=== PATIENT | female | born 1990 | race Caucasian/White ===

== ENCOUNTER 2020-07-21 15:40 | Outpatient (CLI) | payer BC ==
[2020-07-21 16:40] VITALS: BP 123/82; RESP 18; TEMP 99.1
[2020-07-21 16:41] VITALS: PULSE 99
--- NOTE | 2020-08-29 08:00 | P.MSEPDOC ---
Presenting Problems - Arrival Data Date of Arrival on Unit: 07/21/20 Time of Arrival on Unit: 15:40 Mode of Transport: Ambulatory - Complaint OB-Reason for Admission/Chief Complaint: Decreased Movement Medical History - Information : 1 Para: 0 Term: 0 : 0 Abortions: Spontaneous or Elective: 0 Number of Living Children: 0 - Gestational Age Gestational Age by TJ (wks/days): 28 Weeks and 0 Days Review of Systems - Review of Systems Constitutional: No problems Breast: No problems ENT: No problems Cardiovascular: No problems Respiratory: No problems Gastrointestinal: No problems Genitourinary: No problems Musculoskeletal: No problems Neurological: No problems Skin: No problems Vital Signs - Temperature Temperature: 99.1 F Temperature Source: Tympanic - Pulse Right Pulse Rate: 99 Pulse Assessment Method: Automatic Cuff - Respirations Respiratory Rate: 18 Oxygen Delivery Method: Room Air O2 Sat by Pulse Oximetry: 98 - Blood Pressure Right Arm Blood Pressure: 123/82 Blood Pressure Mean: 95 Blood Pressure Source: Automatic Cuff Medical Screen Scoring (Pre) - Cervical Exam Dilation: Exam Deferred Effacement: Exam Deferred Membranes: Intact - Uterine Contractions Frequency: N/A Duration: N/A Intensity: N/A - Maternal Vital Signs Maternal Temperature: N/A Maternal Blood Pressure: N/A Signs of Preeclampsia: N/A Maternal Respirations: N/A - Maternal Trauma Maternal Trauma: N/A - Assessment - Baby A Baseline FHR: 150 Heart Rate - NICHD Category: Category I (Normal) = 0 NST: Reactive Position: N/A Station: N/A - Total Score - Baby A Total Score - Baby A: 0 - Total Score - Baby B Total Score - Baby B: 0 - Total Score - Baby C Total Score - Baby C: 0 - Level of Risk - Baby A Level of Risk - Baby A: Low (0-5) - Level of Risk - Baby B Level of Risk - Baby B: Low (0-5) - Level of Risk - Baby C Level of Risk - Baby C: Low (0-5) Physician Notification (Pre) - Physician Notified Physician Notified Date: 07/21/20 Physician Notified Time: 16:19 New Order Received: No - Notification Comment Comment: Pt cleared for discharge home with follow up instructions. Medical Screen Scoring (Post) - Cervical Exam Dilation: Exam Deferred Effacement: Exam Deferred Membranes: Intact - Uterine Contractions Frequency: N/A Duration: N/A Intensity: N/A - Maternal Vital Signs Maternal Temperature: N/A Maternal Blood Pressure: N/A Signs of Preeclampsia: N/A Maternal Respirations: N/A - Pain Assessment Pain Location and Character: Generalized Pain Scale Used: Numeric (1 - 10) Pain Intensity: 0 Pain Management Goal: 0 Pain Behavior: None Exhibited, Vocalization - Assessment - Baby A Heart Rate: 150 Heart Rate - NICHD Category: Category I (Normal) = 0 NST: Reactive Position: N/A Station: N/A - Total Score Total Score - Baby A: 0 Total Score - Baby B: 0 Total Score - Baby C: 0 - Post Treatment Level of Risk Post Treatment Level of Risk - Baby A: Low (0-5) Post Treatment Level of Risk - Baby B: Low (0-5) Post Treatment Level of Risk - Baby C: Low (0-5) Physician Notification (Post) - Physician Notified Physician Notified Date: 07/21/20 Physician Notified Time: 16:19 Physician/Practitioner Notified:: Sheldon Spoke With: Sheldon New Order Received: Yes (Discharge home with follow up instructions.) Disposition - Disposition OB Disposition: Physician follow up in office, Discharge to home Discharge Date: 07/21/20 Discharge Time: 16:23 I agree with the RN Medical Screening Exam: Yes Case reviewed; plan agreed upon as documented in EMR&OBIX.: Yes Comments: Patient was neither seen nor examined by me. Diagnosis: DECREASED MOVEMENTS, SECOND TRIMESTER, FETUS 1
== END 2020-07-21 16:23 | disposition home or self-care (01) ==
LOC: FBPOP 15:40
PROVIDERS: ATTEND Obstetrics & Gynecology
DX: O36.8120 Decreased fetal movements, second trimester, not applicable or unspecified (principal); Z3A.28 28 weeks gestation of pregnancy
CPT/HCPCS: 59025; 99213

== ENCOUNTER 2020-09-10 15:59 | Outpatient (CLI) | payer BC ==
[2020-09-10 16:29] LABS: Appearance,Urine Cloudy (Clear); Bacteria,Urine Moderate /hpf; Bilirubin,Urine Negative (Negative); Blood,Urine Negative (Negative); Color,Urine Light Yellow; Glucose,Urine (UA) Negative (Negative); Hyaline Casts,Urine 1 /lpf (0-2); Ketones,Urine Negative (Negative); Leukocyte Esterase,Urine Moderate (Negative); Mucus,Urine Rare /hpf; Nitrite,Urine Negative (Negative); Protein,Urine Negative (Negative); RBC,Urine 3 /hpf (0-5); Specific Gravity,Urine 1.008 (1.001-1.035); Squamous Epithelial Cell,Urine 2 /hpf (0-4); Urobilinogen,Urine <2.0 mg/dL (<2.0); WBC,Urine 11 /hpf (0-5)
[2020-09-10 16:36] LABS: Creatinine,Urine Random 35.3 mg/dL; Protein/Creatinine Ratio,Urine 0.397
[2020-09-10 16:56] LABS: Basophils # (A) 0.1 k/uL (0-0.2); Basophils % (A) 0 %; Eosinophils # (A) 0.1 k/uL (0-0.7); Eosinophils % (A) 1 %; HCT 41.8 % (34.0-46.0); HGB 14.2 gm/dL (11.4-16.0); Lymphocytes # (A) 2.1 k/uL (1.0-4.8); Lymphocytes % (A) 17 %; MCH 31.7 pg (25.0-35.0); MCHC 33.9 g/dL (31.0-37.0); MCV 93.4 fL (80.0-100.0); Mean Platelet Volume 10.4; Monocytes # (A) 0.7 k/uL (0-1.0); Monocytes % (A) 5 %; Neutrophils # (A) 9.1 k/uL (1.3-7.7); Neutrophils % (A) 75 %; Platelet Count 216 k/uL (150-450); RBC 4.48 m/uL (3.80-5.40); RDW 13.1 % (11.5-15.5); WBC 12.2 k/uL (3.8-10.6)
[2020-09-10 17:04] LABS: ALT 14 U/L (4-34); AST 20 U/L (14-36); African American GFR (CKD) >90 (>60 ml/min/1.73 sqM); Blood Urea Nitrogen 10 mg/dL (7-17); LDH 367 U/L (313-618); Non-African American GFR(CKD) >90 (>60 ml/min/1.73 sqM); Uric Acid 3.7 mg/dL (3.7-7.4)
[2020-09-10] MEDS ORDERED: BETAMET ACET-BETAMETH SOD PHOS 6 MG/ML MDV IM SCH (17:15)
[2020-09-10 17:35] VITALS: BP 136/87; PULSE 104; RESP 16; TEMP 97
--- NOTE | 2020-10-30 16:41 | P.MSEPDOC ---
Presenting Problems - Arrival Data Date of Arrival on Unit: 09/10/20 Time of Arrival on Unit: 15:59 Mode of Transport: Ambulatory - Complaint OB-Reason for Admission/Chief Complaint: PIH Comment: Telephone orders rec'd for PIH work up, pt coming from [facility]. Medical History - Information : 1 Para: 0 - Gestational Age Gestational Age by TJ (wks/days): 35 Weeks and 4 Days Review of Systems - Review of Systems Constitutional: No problems Breast: No problems ENT: No problems Cardiovascular: No problems Respiratory: No problems Gastrointestinal: No problems Genitourinary: No problems Musculoskeletal: No problems Neurological: No problems Skin: No problems Vital Signs - Temperature Temperature: 97.0 F Temperature Source: Temporal Artery Scan - Pulse Right Sitting Brachial Pulse Rate: 104 Pulse Assessment Method: Automatic Cuff - Respirations Respiratory Rate: 16 Oxygen Delivery Method: Room Air O2 Sat by Pulse Oximetry: 97 - Blood Pressure Right Arm Sitting Blood Pressure: 136/87 Blood Pressure Mean: 103 Blood Pressure Source: Automatic Cuff Medical Screen Scoring (Pre) - Cervical Exam Dilation: Exam Deferred Effacement: Exam Deferred Membranes: Intact - Uterine Contractions Frequency: N/A - Maternal Vital Signs Maternal Temperature: N/A Maternal Blood Pressure: N/A Signs of Preeclampsia: N/A Maternal Respirations: N/A - Maternal Trauma Maternal Trauma: N/A - Assessment - Baby A Baseline FHR: 150 Heart Rate - NICHD Category: Category I (Normal) = 0 NST: Reactive Position: N/A - Total Score - Baby A Total Score - Baby A: 0 - Total Score - Baby B Total Score - Baby B: 0 - Total Score - Baby C Total Score - Baby C: 0 - Level of Risk - Baby A Level of Risk - Baby A: Low (0-5) - Level of Risk - Baby B Level of Risk - Baby B: Low (0-5) - Level of Risk - Baby C Level of Risk - Baby C: Low (0-5) Physician Notification (Pre) - Physician Notified Physician Notified Date: 09/10/20 Physician Notified Time: 17:00 - Notification Comment Comment: Spk c\Dr. Trejo, reviewed serial BPs, reactive NST, labs reviewed all WNL c\the exception of urube P/C ratio (0.397). Orders rec'd for pt to receive Celestone now and second dose in 24hrs, to return tomorrow and repeat P/C ratio, NST and BPs. Disposition - Disposition OB Disposition: Discharge to home, Written follow up instructions reviewed Discharge Date: 09/10/20 Discharge Time: 17:20 I agree with the RN Medical Screening Exam: Yes Case reviewed; plan agreed upon as documented in EMR&OBIX.: Yes Diagnosis: gestational hypertension
== END 2020-09-10 17:20 | disposition home or self-care (01) ==
LOC: FBPOP 15:59
PROVIDERS: ATTEND Obstetrics & Gynecology
DX: O13.9 Gestational [pregnancy-induced] hypertension without significant proteinuria, unspecified trimester (principal); Z3A.35 35 weeks gestation of pregnancy
CPT/HCPCS: 59025; 96372; 82570; 84156; 82565; 83615; 84450; 84460; 84520; 84550; 85025; 81001; J0702

== ENCOUNTER 2020-09-11 16:58 | Outpatient (CLI) | payer BC ==
[2020-09-11] MEDS ORDERED: BETAMET ACET-BETAMETH SOD PHOS 6 MG/ML MDV IM SCH (17:20)
[2020-09-11 17:30] LABS: Creatinine,Urine Random 94.1 mg/dL; Protein/Creatinine Ratio,Urine 0.149
[2020-09-11 17:53] VITALS: BP 141/87; PULSE 118; RESP 18; TEMP 97.1
--- NOTE | 2020-09-23 08:05 | P.MSEPDOC ---
Presenting Problems - Arrival Data Date of Arrival on Unit: 09/11/20 Time of Arrival on Unit: 16:58 Mode of Transport: Ambulatory - Complaint OB-Reason for Admission/Chief Complaint: NST, Celestone Injection, Elevated Blood Pressure Comment: pt sent with order form from Dr. Trejo for 2nd celestone injection, serial bp's and nst Medical History - Gestational Age Gestational Age by TJ (wks/days): 35 Weeks and 5 Days Review of Systems - Review of Systems Constitutional: No problems Breast: No problems ENT: No problems Cardiovascular: No problems Respiratory: No problems Gastrointestinal: No problems Genitourinary: No problems Musculoskeletal: No problems Neurological: No problems Skin: No problems Vital Signs - Temperature Temperature: 97.1 F Temperature Source: Temporal Artery Scan - Pulse Right Brachial Pulse Rate: 118 Pulse Assessment Method: Automatic Cuff - Respirations Respiratory Rate: 18 Oxygen Delivery Method: Room Air - Blood Pressure Right Arm Blood Pressure: 141/87 Blood Pressure Mean: 105 Blood Pressure Source: Automatic Cuff Medical Screen Scoring (Pre) - Cervical Exam Dilation: Exam Deferred Effacement: Exam Deferred Membranes: Intact - Uterine Contractions Frequency: N/A Duration: N/A Intensity: N/A - Maternal Vital Signs Maternal Temperature: N/A Maternal Blood Pressure: Systolic >139 = 2 Signs of Preeclampsia: Headache = 1 Maternal Respirations: N/A - Maternal Trauma Maternal Trauma: N/A - Assessment - Baby A Baseline FHR: 120 Heart Rate - NICHD Category: Category I (Normal) = 0 NST: Reactive Position: N/A Station: N/A - Total Score - Baby A Total Score - Baby A: 3 - Total Score - Baby B Total Score - Baby B: 3 - Total Score - Baby C Total Score - Baby C: 3 - Level of Risk - Baby A Level of Risk - Baby A: Low (0-5) - Level of Risk - Baby B Level of Risk - Baby B: Low (0-5) - Level of Risk - Baby C Level of Risk - Baby C: Low (0-5) Physician Notification (Pre) - Physician Notified Physician Notified Date: 09/11/20 Physician Notified Time: 17:39 New Order Received: Yes - Notification Comment Comment: protien/creatine ratio results given, discharge pt home, call the office to make appt for Wednesday or Wednesday to follow up with Dr. Bernstein regarding bp, Disposition - Disposition OB Disposition: Triage Discharge Date: 09/11/20 Discharge Time: 17:50 I agree with the RN Medical Screening Exam: Yes Case reviewed; plan agreed upon as documented in EMR&OBIX.: Yes Diagnosis: gestational hypertension
== END 2020-09-11 17:50 | disposition home or self-care (01) ==
LOC: FBPOP 16:58
PROVIDERS: ATTEND Obstetrics & Gynecology
DX: O13.3 Gestational [pregnancy-induced] hypertension without significant proteinuria, third trimester (principal); Z3A.35 35 weeks gestation of pregnancy
CPT/HCPCS: 59025; 82570; 84156; J0702

== ENCOUNTER 2020-09-12 10:46 | Outpatient (CLI) | payer BC ==
[2020-09-12 11:29] VITALS: BP 136/83; PULSE 103; RESP 16; TEMP 97
--- NOTE | 2020-09-23 08:06 | P.MSEPDOC ---
Presenting Problems - Arrival Data Date of Arrival on Unit: 09/12/20 Time of Arrival on Unit: 10:46 Mode of Transport: Ambulatory - Complaint OB-Reason for Admission/Chief Complaint: Headache Comment: Pt states headache 5/10, "all over" head and tinnitus x 2 days, also c/o light sensitivity. Has been taking BP at home and had a reading of 130s/100 this morning. Medical History - Information : 1 Para: 0 - Gestational Age Gestational Age by TJ (wks/days): 35 Weeks and 6 Days Review of Systems - Review of Systems Constitutional: No problems Breast: No problems ENT: No problems Cardiovascular: No problems Respiratory: No problems Gastrointestinal: No problems Genitourinary: No problems Musculoskeletal: No problems Neurological: No problems Skin: No problems Vital Signs - Temperature Temperature: 97 F Temperature Source: Temporal Artery Scan - Pulse Right Sitting Pulse Rate: 103 Pulse Assessment Method: Pulse Oximetry - Respirations Respiratory Rate: 16 Oxygen Delivery Method: Standby O2 Sat by Pulse Oximetry: 98 - Blood Pressure Right Arm Sitting Blood Pressure: 136/83 Blood Pressure Mean: 100 Blood Pressure Source: Automatic Cuff Medical Screen Scoring (Pre) - Cervical Exam Dilation: Exam Deferred - Uterine Contractions Frequency: N/A Duration: N/A Intensity: N/A - Maternal Vital Signs Maternal Temperature: N/A Maternal Blood Pressure: N/A Signs of Preeclampsia: N/A Maternal Respirations: N/A - Maternal Trauma Maternal Trauma: N/A - Assessment - Baby A Baseline FHR: 130 Heart Rate - NICHD Category: Category I (Normal) = 0 NST: Reactive Position: N/A Station: N/A - Total Score - Baby A Total Score - Baby A: 0 - Total Score - Baby B Total Score - Baby B: 0 - Total Score - Baby C Total Score - Baby C: 0 - Level of Risk - Baby A Level of Risk - Baby A: Low (0-5) - Level of Risk - Baby B Level of Risk - Baby B: Low (0-5) - Level of Risk - Baby C Level of Risk - Baby C: Low (0-5) Physician Notification (Pre) - Physician Notified Physician Notified Date: 09/12/20 Physician Notified Time: 11:16 New Order Received: Yes - Notification Comment Comment: Jennifer delacruz\\Dr. Trejo, advsd 35 12/23, to triage c\\concerns of JOHNSON x 2 days, light sensitivity and tinnitus, pt had PIH workup 2 days ago, and repeat Urine P/C ratio (WNL) yesterday, also rec'd celestone x 2. Pt checking BP at home and concerned with intermittent high reading. BPs reviewed, FHT reactive. Pt to be reassured and discharged home to follow up as scheduled, review triage d/c. Disposition - Disposition OB Disposition: Discharge to home, Written follow up instructions reviewed Discharge Date: 09/12/20 Discharge Time: 11:25 I agree with the RN Medical Screening Exam: Yes Case reviewed; plan agreed upon as documented in EMR&OBIX.: Yes Diagnosis: gestational hypertension
== END 2020-09-12 11:25 | disposition home or self-care (01) ==
LOC: FBPOP 10:46
PROVIDERS: ATTEND Obstetrics & Gynecology
DX: O13.3 Gestational [pregnancy-induced] hypertension without significant proteinuria, third trimester (principal); Z3A.35 35 weeks gestation of pregnancy
CPT/HCPCS: 59025; 99215

== ENCOUNTER 2020-10-08 06:00 | Inpatient (IN) | payer BC ==
[2020-10-08] MEDS ORDERED: LIDOCAINE 0.5% (PF) 5 MG/ML (50 ML SDV) SQ PRN (06:11)
[2020-10-08] MEDS ORDERED: METHYLERGONOVINE 0.2 MG/ML 1 ML AMP IM PRN (06:11)
[2020-10-08] MEDS ORDERED: TERBUTALINE 1 MG/ML VIAL SQ PRN (06:11)
[2020-10-08] MEDS ORDERED: OXYTOCIN 10 UNIT/ML 1 ML VIAL IM PRN (06:11)
[2020-10-08] MEDS ORDERED: CARBOPROST TROMETHAMINE 250 MCG/ML 1 ML AMP IM PRN (06:11)
[2020-10-08] MEDS: LACTATED RINGERS 1,000 ML IV SCH ×2 (06:31→11:05)
[2020-10-08] MEDS: OXYTOCIN 30 UNITS/500 ML NS 30 UNIT in SALINE 1 500ML.BAG IV SCH ×2 (06:32→17:27)
[2020-10-08 06:35] LABS: Basophils # (A) 0.1 k/uL (0-0.2); Basophils % (A) 1 %; Eosinophils # (A) 0.2 k/uL (0-0.7); Eosinophils % (A) 2 %; HCT 40.2 % (34.0-46.0); HGB 14.1 gm/dL (11.4-16.0); Lymphocytes # (A) 2.3 k/uL (1.0-4.8); Lymphocytes % (A) 21 %; MCH 32.7 pg (25.0-35.0); MCV 93.5 fL (80.0-100.0); Monocytes # (A) 0.7 k/uL (0-1.0); Monocytes % (A) 6 %; Neutrophils # (A) 7.5 k/uL (1.3-7.7); Neutrophils % (A) 69 %; Platelet Count 209 k/uL (150-450); WBC 10.9 k/uL (3.8-10.6)
[2020-10-08] MEDS: BUTORPHANOL 1 MG/ML 1 ML VIAL IV PRN ×2 (08:56→19:10)
--- NOTE | 2020-10-08 09:16 | P.HPOB ---
History of Present Illness H&P Date: 10/08/20 Chief Complaint: Gestational hypertension This is a 30-year-old 1 para 0 woman who is admitted at 39-4/7 weeks gestation for induction of labor secondary to history of gestational hypertension. She has an estimated due date of 10/11/2020 based on LMP consistent with early ultrasound. She began having elevated blood pressures at 35 weeks gestation. Preeclamptic workup was consistently negative. She was started on labetalol for blood pressure control which she now takes 100 mg twice a day. testing has all been reassuring. She has had some increasing lower extremity swelling for which she wears compression stockings. Today she denies headaches, visual changes, increased swelling, abdominal pain. She's had good movement. Laboratory data: Blood type O positive, antibody screen negative, rubella immune, VDRL nonreactive, hep Margarita surface antigen negative, HIV negative, gonorrhea and clinic cultures negative, 1 hour glucose tolerance test abnormal, 3 hour within normal limits, group B strep negative Review of Systems All systems: negative Past Medical History Past Medical History: Asthma History of Any Multi-Drug Resistant Organisms: None Reported Date of last positivie culture/infection: 2007 MDRO Source:: unknown Past Surgical History: Tonsillectomy Additional Past Surgical History / Comment(s): Right elbow repair Past Anesthesia/Blood Transfusion Reactions: No Reported Reaction Past Psychological History: Anxiety, Depression Smoking Status: Never smoker Past Alcohol Use History: None Reported Past Drug Use History: None Reported - Past Family History Father Family Medical History: Cancer, Hypertension Additional Family Medical History / Comment(s): Stroke, [place], Blood Cancer Mother Family Medical History: Hypertension Additional Family Medical History / Comment(s): Anxiety, Depression Medications and Allergies Home Medications Medication Instructions Recorded Confirmed Type Pnv No.95/Ferrous Fum/Folic AC 1 tab PO DAILY 05/31/20 10/08/20 History [ Multivitamin Tablet] Labetalol [Trandate] 100 mg PO BID 10/08/20 10/08/20 History Allergies Allergy/AdvReac Type Severity Reaction Status Date / Time adhesive tape AdvReac Rash/Hives Verified 10/08/20 06:10 Exam Vital Signs Temp Pulse Resp BP Pulse Ox 10/08/20 06:16 97.2 F L 94 16 149/76 99 Intake and Output 10/07/20 10/08/2021 22:59 06:59 14:59 Other: Weight 86.636 kg This is a pleasant, visibly gravid female. Targeted physical exam is performed. She has bilateral compression stockings on but appears to have 2+ lower extremity edema. On pelvic examination the cervix is 1-1/2 cm dilated, 80% effaced and the vertex in the -2 station. Artificial rupture membranes is undertaken and clear fluid is noted. heart tones are category 1 and she is irregularly tamara. Results Result Diagrams: 10/08/20 06:25 Abnormal Lab Results - Last 24 Hours (Table) 10/08/20 Range/Units 06:25 WBC 10.9 H (3.8-10.6) k/uL Assessment and Plan (1) 39 weeks gestation of Current Visit: Yes Status: Acute Code(s): Z3A.39 - 39 WEEKS GESTATION OF SNOMED Code(s): 27466566 (2) Gestational hypertension Current Visit: Yes Status: Acute Code(s): O13.9 - GESTATIONAL HTN W/O SIGNIFICANT PROTEINURIA, UNSP TRIMESTER SNOMED Code(s): 051208464 Plan: 30-year-old 1 para 0 at 39-4/7 weeks gestation admitted for induction of labor secondary to gestational hypertension. status is currently reassuring her blood pressures were mainly in the 130s over 80s. She is group B strep negative and Rh+. Anticipate normal spontaneous vaginal delivery.
[2020-10-08] MEDS ORDERED: ROPIVACAINE 100 MG, fentaNYL (PF) 200 MCG in SODIUM CHLORIDE 0.9% 76 ML EPIDURAL ONE (12:33)
[2020-10-08] MEDS ORDERED: LANOLIN CREAM 5 GM TUBE TOPICAL PRN (14:47)
[2020-10-08] MEDS ORDERED: HYDROCORTISONE 2.5% RECTAL CREAM 30 GM TUBE RECTAL PRN (14:47)
[2020-10-08] MEDS ORDERED: diphenhydrAMINE 50 MG CAP PO PRN (14:47)
[2020-10-08] MEDS ORDERED: SIMETHICONE 80 MG CHEWABLE PO PRN (14:47)
[2020-10-08] MEDS ORDERED: diphenhydrAMINE 50 MG/ML 1 ML VIAL IVP PRN ×2 (14:47)
[2020-10-08] MEDS ORDERED: BENZOCAINE/MENTHOL SPRAY 1 GM/SPRAY AEROSOL TOPICAL PRN (14:47)
[2020-10-08] MEDS ORDERED: ZOLPIDEM 5 MG TAB PO PRN (14:47)
[2020-10-08] MEDS ORDERED: diphenhydrAMINE 25 MG CAP PO PRN (14:47)
[2020-10-08] MEDS ORDERED: OXYTOCIN 30 UNITS/500 ML NS 30 UNIT in SALINE 1 500ML.BAG IV SCH (15:00)
--- NOTE | 2020-10-08 15:04 | P.PROBDLV ---
Vaginal Delivery Note - . Vaginal Delivery Note: Findings: Female in the vertex left occiput anterior position with Apgars of 8 at 1 minute and 9 at 5 minutes weighing 7 lbs. 15 oz., 3560 g. Intact three-vessel cord placenta. Right vaginal sulcus tear. EBL 500 mL's from laceration. Delivery summary: This is a 30-year-old 1 para 0 woman who is admitted at 39-4/7 weeks gestation for induction of labor secondary to gestational hypertension. Please see the admission history and physical for details. Following admission she underwent a Pitocin induction of labor with artificial rupture of membranes. She was 1-1/2 cm dilated at rupture of membranes at approximately 7:30 AM. Clear fluid was noted. She progressed to 5 cm dilated by approximately 12 PM. She received an epidural anesthetic. She reached complete cervical dilation by approximately 1400 and commenced pushing with good maternal effort. She had an extremely dense epidural. With she was repositioned, prepped and draped in the dorsal modified Dotty position. With maternal effort the head delivered from the left occiput anterior position. Of note immediately prior to delivery of the head there was an audible pop and sudden descent of the vertex. The head then delivered from the left occiput anterior position followed rapidly by the anterior and posterior shoulders. The rest the was delivered onto the field and the nose and mouth were bulb suctioned. The infant was placed on the maternal abdomen where eventually the cord was clamped and cut. Apgars were 8 at 1 minute and 9 at 5 minutes and weight was 7 lbs. 15 oz. An intact, three-vessel cord placenta was delivered after a 3 minute third stage of labor. The perineum was then inspected. The perineum itself was intact however there is a deep midline and right vaginal and cervical tear. This was actively and copiously bleeding. Assistance was called for for visualization. Fingers was placed in the rectum and the rectal mucosa was noted to be intact. With finger in the rectum for guidance several deep sutures were placed to reapproximate the floor of the vagina and the sidewall. This eventually controlled the bleeding and better visualization was possible. Gloves were changed. The laceration was then further repaired. 3-0 Vicryl suture was utilized throughout. There was a shearing laceration of the right labia that was also repaired using 3-0 Vicryl suture. Following completion of the repair the vagina was thoroughly inspected and no active bleeding was noted. Rectal exam was repeated and no evidence of hematoma or disruption of the rectal mucosa were musculature was appreciated. EBL for the entire delivery was a proximally 500 mL's. The uterus was massaged and the patient did receive Pitocin immediately following delivery of the placenta. The uterus was firm throughout and below the level of the umbilicus. Events of delivery and the laceration reviewed with the patient and the father of the baby in detail. Nursing staff instructed to monitor for hematoma development and at this time she is recovering well. CBC in the a.m.
[2020-10-08] MEDS: IBUPROFEN 600 MG TAB PO SCH ×2 (15:16→21:23)
--- NOTE | 2020-10-08 19:43 | P.PN ---
Progress Note - Text Progress Note Date: 10/08/20 Called to see patient who is status post normal spontaneous vaginal delivery earlier this afternoon. Patient had noted increase in bright red bleeding, per RN. Her hemoglobin on admission was 14, vital signs were noted to be stable throughout recovery. Patient was given 1 mg of Stadol, and complete evaluation of the vaginal vault was performed. An anterior Peña retractor was placed into the vaginal vault, no bleeding superior to the vaginal repair was appreciated. The vaginal laceration was well approximated and hemostatic. Uterus is noted be firm and below the umbilicus, lochia was noted to be minimal in nature. On inspection the patient's right labia noted a small clot and appreciation of prior repair. 4-0 chromic was used to close the labial laceration in a running locked fashion after installation of lidocaine. No further bleeding was appreciated. Patient did tolerate closure well all counts were noted be correct 2 at the end of the repair.
[2020-10-08] MEDS: SENNOSIDES-DOCUSATE SODIUM 1 EACH TAB PO SCH (20:08)
[2020-10-08 20:43] LABS: Basophils % (A) 0 %; Eosinophils # (A) 0.1 k/uL (0-0.7); Eosinophils % (A) 1 %; HCT 36.2 % (34.0-46.0); Lymphocytes # (A) 1.7 k/uL (1.0-4.8); Lymphocytes % (A) 11 %; MCH 31.1 pg (25.0-35.0); MCHC 33.2 g/dL (31.0-37.0); MCV 93.6 fL (80.0-100.0); Mean Platelet Volume 10.9; Monocytes # (A) 0.8 k/uL (0-1.0); Monocytes % (A) 5 %; Neutrophils # (A) 12.2 k/uL (1.3-7.7); Neutrophils % (A) 82 %; Platelet Count 218 k/uL (150-450); RBC 3.86 m/uL (3.80-5.40); RDW 13.4 % (11.5-15.5)
[2020-10-09] MEDS: ACETAMINOPHEN TAB 325 MG TAB PO PRN ×2 (01:09→07:28)
[2020-10-09] MEDS: IBUPROFEN 600 MG TAB PO SCH ×3 (04:41→15:15)
[2020-10-09] MEDS: SENNOSIDES-DOCUSATE SODIUM 1 EACH TAB PO SCH (07:29)
--- NOTE | 2020-10-09 08:17 | P.DS ---
Providers Date of admission: 10/08/20 06:00 Expected date of discharge: 10/09/20 Attending physician: Taylor Trejo Primary care physician: Stated None - Discharge Diagnosis(es) (1) 39 weeks gestation of Current Visit: Yes Status: Acute (2) Gestational hypertension Current Visit: Yes Status: Acute (3) Vaginal laceration Current Visit: Yes Status: Acute (4) Normal spontaneous vaginal delivery Current Visit: Yes Status: Acute Hospital Course: This is a 30-year-old 1 now para 1 woman who was admitted at 39-4/7 weeks' gestation for induction of labor secondary to gestational hypertension. Please see the admission history and physical for details. Following admission she underwent a Pitocin induction of labor with artificial rupture of membranes. She had a rather rapid progression throughout the first stage of labor and did receive an epidural anesthetic. Her blood pressures were stable throughout her labor. She did reach complete cervical dilation and commenced pushing with excellent maternal effort. She did have a very dense epidural. She went on to deliver a liveborn female over an unusual vaginal laceration. Apgars were 8 at 1 minute and 9 at 5 minutes and weight was 7 lbs. 14 oz. She had a deep but proximal vaginal laceration with active arterial bleeding. This was repaired however EBL is approximate 500 mL's. This laceration extended into the right labia which was also repaired. Unfortunately later in the day some increase in bleeding was noted. Bag Repairer on-call was called to assess and it appeared as though the labial portion of the laceration had opened. This was anesthetized and repaired with good hemostasis. Please see the progress note for details. The patient's day #1 hemoglobin was greater than 12. Her admission hemoglobin was 14. Her blood pressures have remained stable throughout her hospitalization with 1 elevated blood pressure of 150s over 80s. This morning on day #1 she is ambulating and urinating without difficulty. She has some soreness in the perineal area that is being controlled with ice and ibuprofen. She is not yet had a bowel movement. Her lochia was minimal and she is breast-feeding successfully. Plan is for discharge home later in the day with instructions for care and follow-up. Patient Condition at Discharge: Good Plan - Discharge Summary New Discharge Prescriptions: New Ibuprofen [Motrin] 600 mg PO Q6H tab Sennosides-Docusate Sodium [Senokot-S] 2 each PO BID@00,1999 tab No Action Pnv No.95/Ferrous Fum/Folic AC [ Multivitamin Tablet] 1 tab PO DAILY Labetalol [Trandate] 100 mg PO BID Discharge Medication List Pnv No.95/Ferrous Fum/Folic AC [ Multivitamin Tablet] 1 tab PO DAILY 05/31/20 [History] Labetalol [Trandate] 100 mg PO BID 10/08/20 [History] Ibuprofen [Motrin] 600 mg PO Q6H tab 10/09/20 [Rx] Sennosides-Docusate Sodium [Senokot-S] 2 each PO BID@799,1999 tab 10/09/20 [Rx] Follow up Appointment(s)/Referral(s): Taylor Trejo MD [STAFF PHYSICIAN] - 4 Weeks Activity/Diet/Wound Care/Special Instructions: Follow-up in the office in 4 weeks . Monitor home blood pressures. Contact the office with blood pressures greater than 150s over 90s. Call with any concerning signs or symptoms including heavy vaginal bleeding, severe abdominal pain, fever greater than 101, swelling or redness of the lower extremities, foul vaginal discharge, or signs of depression. Recommend [id number] stool softeners twice a day. Nothing in the vagina for 6 weeks after delivery, specifically no intercourse. Discharge Disposition: HOME SELF-CARE
[2020-10-09 08:31] LABS: Basophils # (A) 0.1 k/uL (0-0.2); Basophils % (A) 1 %; Eosinophils # (A) 0.1 k/uL (0-0.7); Eosinophils % (A) 1 %; HCT 32.8 % (34.0-46.0); Lymphocytes # (A) 1.9 k/uL (1.0-4.8); Lymphocytes % (A) 16 %; MCH 31.7 pg (25.0-35.0); MCHC 33.4 g/dL (31.0-37.0); MCV 94.9 fL (80.0-100.0); Mean Platelet Volume 10.2; Monocytes # (A) 0.7 k/uL (0-1.0); Monocytes % (A) 6 %; Neutrophils # (A) 9.3 k/uL (1.3-7.7); Neutrophils % (A) 76 %; Platelet Count 165 k/uL (150-450); RBC 3.46 m/uL (3.80-5.40); RDW 13.6 % (11.5-15.5); WBC 12.3 k/uL (3.8-10.6)
[2020-10-09 08:56] VITALS: PULSE 75; RESP 18; TEMP 98.2
[2020-10-09 08:57] VITALS: BP 138/84
[2020-10-09] MEDS: LACTATED RINGERS 1,000 ML IV SCH (09:00)
== END 2020-10-09 15:38 | disposition home or self-care (01) | DRG 807 ==
LOC: 4FBP 06:00
PROVIDERS: ADMIT Obstetrics & Gynecology; ATTEND Obstetrics & Gynecology
PROC: 10E0XZZ Delivery of Products of Conception, External Approach (ICD-10-PCS; principal; 2020-10-08)
PROC: 0HQ9XZZ Repair Perineum Skin, External Approach (ICD-10-PCS; 2020-10-08)
DX: O13.4 Gestational [pregnancy-induced] hypertension without significant proteinuria, complicating childbirth (principal); Z37.0 Single live birth; O99.52 Diseases of the respiratory system complicating childbirth; J45.909 Unspecified asthma, uncomplicated; Z82.3 Family history of stroke; Z3A.39 39 weeks gestation of pregnancy; O70.0 First degree perineal laceration during delivery; Z81.8 Family history of other mental and behavioral disorders; Z82.49 Family history of ischemic heart disease and other diseases of the circulatory system
CPT/HCPCS: 85025; 86850; 86900; 86901

== ENCOUNTER 2022-12-06 10:26 | Outpatient (CLI) | payer BC ==
[2022-12-06 11:04] LABS: Appearance,Urine Clear (Clear); Bilirubin,Urine Negative (Negative); Blood,Urine Negative (Negative); Color,Urine Light Yellow; Glucose,Urine (UA) Negative (Negative); Ketones,Urine Negative (Negative); Leukocyte Esterase,Urine Negative (Negative); Nitrite,Urine Negative (Negative); Protein,Urine Negative (Negative); Specific Gravity,Urine 1.005 (1.001-1.035); Urobilinogen,Urine <2.0 mg/dL (<2.0)
[2022-12-06 11:15] LABS: Creatinine,Urine Random 41.9 mg/dL; Protein/Creatinine Ratio,Urine 0.215
[2022-12-06 12:22] LABS: Basophils % (A) 0 %; Eosinophils # (A) 0.3 k/uL (0-0.7); Eosinophils % (A) 2 %; HCT 37.9 % (34.0-46.0); HGB 12.8 gm/dL (11.4-16.0); Lymphocytes # (A) 1.5 k/uL (1.0-4.8); Lymphocytes % (A) 12 %; MCH 29.9 pg (25.0-35.0); MCHC 33.6 g/dL (31.0-37.0); MCV 88.9 fL (80.0-100.0); Mean Platelet Volume 9.6; Monocytes # (A) 0.6 k/uL (0-1.0); Monocytes % (A) 5 %; Neutrophils # (A) 9.8 k/uL (1.3-7.7); Neutrophils % (A) 80 %; Platelet Count 187 k/uL (150-450); RBC 4.26 m/uL (3.80-5.40); RDW 13.3 % (11.5-15.5); WBC 12.4 k/uL (3.8-10.6)
[2022-12-06 12:30] LABS: ALT 13 U/L (4-34); AST 20 U/L (14-36); African American GFR (CKD) >90 (>60 ml/min/1.73 sqM); Blood Urea Nitrogen 5 mg/dL (7-17); LDH 164 U/L (120-246); Magnesium 1.7 mg/dL (1.6-2.3); Non-African American GFR(CKD) >90 (>60 ml/min/1.73 sqM); Uric Acid 2.5 mg/dL (3.7-7.4)
[2022-12-06 13:05] VITALS: BP 139/86; PULSE 105; RESP 16; TEMP 97.7
--- NOTE | 2023-01-07 19:09 | P.MSEPDOC ---
Presenting Problems - Arrival Data Date of Arrival on Unit: 12/06/22 Time of Arrival on Unit: 10:26 Mode of Transport: Ambulatory - Complaint OB-Reason for Admission/Chief Complaint: PIH Medical History - Information : 2 Para: 1 Number of Living Children: 1 - Gestational Age Gestational Age by TJ (wks/days): 22 Weeks and 4 Days Review of Systems - Review of Systems Constitutional: No problems Breast: No problems ENT: No problems Cardiovascular: No problems Respiratory: No problems Gastrointestinal: No problems Genitourinary: No problems Musculoskeletal: No problems Neurological: No problems Skin: No problems Vital Signs - Temperature Temperature: 97.7 F Temperature Source: Temporal Artery Scan - Pulse Right Sitting Brachial Pulse Rate: 105 Pulse Assessment Method: Automatic Cuff - Respirations Respiratory Rate: 16 Oxygen Delivery Method: Room Air - Blood Pressure Right Arm Sitting Blood Pressure: 139/86 Blood Pressure Mean: 103 Blood Pressure Source: Automatic Cuff Physician Notification - Physician Notified Physician Notified Date: 12/06/22 Physician Notified Time: 12:45 Physician: Genesis Jean New Order Received: Yes Maternal Triage Index - Maternal Triage Index Presenting for scheduled procedure w/no complaint: No - Stat/Priority 1 Stat Priority 1: No - Urgent/Priority 2 Urgent Priority 2: No - Prompt/Priority 3 Prompt Priority 3: Yes Criteria Met for Priority 3: pt reports elevated pressures, RN findings are not elevated Disposition - Disposition OB Disposition: Discharge to home Discharge Date: 12/06/22 Discharge Time: 12:50 I agree with the RN Medical Screening Exam: Yes Case reviewed; plan agreed upon as documented in EMR&OBIX.: Yes Diagnosis: RELATED CONDITIONS, UNSPECIFIED, SECOND TRIMESTER
== END 2022-12-06 12:50 | disposition home or self-care (01) ==
LOC: FBPOP 10:26
PROVIDERS: ATTEND Obstetrics & Gynecology Obstetrics
DX: O26.892 Other specified pregnancy related conditions, second trimester (principal); Z3A.22 22 weeks gestation of pregnancy
CPT/HCPCS: 81003; 82565; 82570; 83615; 83735; 84156; 84450; 84460; 84520; 84550; 85025; 99215

== ENCOUNTER 2023-01-08 17:15 | Outpatient (CLI) | payer BC ==
[2023-01-08 18:08] LABS: Appearance,Urine Clear (Clear); Bacteria,Urine Rare /hpf; Bilirubin,Urine Negative (Negative); Blood,Urine Negative (Negative); Color,Urine Yellow; Glucose,Urine (UA) Negative (Negative); Ketones,Urine Trace (Negative); Leukocyte Esterase,Urine Trace (Negative); Mucus,Urine Moderate /hpf; Nitrite,Urine Negative (Negative); PH, Urine 6.5 (5.0-8.0); Protein,Urine Trace (Negative); RBC,Urine <1 /hpf (0-5); Specific Gravity,Urine 1.023 (1.001-1.035); Squamous Epithelial Cell,Urine 8 /hpf (0-4); Urobilinogen,Urine <2.0 mg/dL (<2.0); WBC,Urine 2 /hpf (0-5)
[2023-01-08 18:48] LABS: Basophils % (A) 0 %; Eosinophils # (A) 0.2 k/uL (0-0.7); Eosinophils % (A) 2 %; HCT 35.9 % (34.0-46.0); HGB 12.1 gm/dL (11.4-16.0); Lymphocytes # (A) 2.6 k/uL (1.0-4.8); Lymphocytes % (A) 24 %; MCH 30.1 pg (25.0-35.0); MCHC 33.6 g/dL (31.0-37.0); MCV 89.5 fL (80.0-100.0); Mean Platelet Volume 9.2; Monocytes # (A) 0.7 k/uL (0-1.0); Monocytes % (A) 7 %; Neutrophils % (A) 66 %; Platelet Count 209 k/uL (150-450); RBC 4.01 m/uL (3.80-5.40); RDW 13.5 % (11.5-15.5); WBC 10.6 k/uL (3.8-10.6)
[2023-01-08 18:55] VITALS: BP 115/68; PULSE 91; RESP 16; TEMP 97.3
[2023-01-08 19:03] LABS: African American GFR (CKD) >90 (>60 ml/min/1.73 sqM); Anion Gap 8 mmol/L; Blood Urea Nitrogen 7 mg/dL (7-17); Calcium 9.1 mg/dL (8.4-10.2); Carbon Dioxide 18 mmol/L (22-30); Chloride 107 mmol/L (98-107); Glucose 77 mg/dL (74-99); Non-African American GFR(CKD) >90 (>60 ml/min/1.73 sqM); Potassium 3.9 mmol/L (3.5-5.1); Sodium 133 mmol/L (137-145)
--- NOTE | 2023-03-03 17:51 | P.MSEPDOC ---
Presenting Problems - Arrival Data Date of Arrival on Unit: 01/08/23 Time of Arrival on Unit: 17:15 Mode of Transport: Ambulatory - Complaint OB-Reason for Admission/Chief Complaint: Pain Comment: lower right quad and generalized back pain Medical History - Information : 3 Para: 1 Term: 1 : 0 Abortions: Spontaneous or Elective: 1 Number of Living Children: 1 - Gestational Age Gestational Age by TJ (wks/days): 27 Weeks and 2 Days Review of Systems - Review of Systems Constitutional: No problems Breast: No problems ENT: No problems Cardiovascular: No problems Respiratory: No problems Gastrointestinal: No problems Genitourinary: No problems Musculoskeletal: No problems Neurological: No problems Skin: No problems Vital Signs - Temperature Temperature: 97.3 F Temperature Source: Temporal Artery Scan - Pulse Right Pulse Rate: 91 Pulse Assessment Method: Automatic Cuff - Respirations Respiratory Rate: 16 Oxygen Delivery Method: Room Air O2 Sat by Pulse Oximetry: 99 - Blood Pressure Right Arm Sitting Blood Pressure: 115/68 Blood Pressure Mean: 83 Blood Pressure Source: Automatic Cuff Medical Screen Scoring - Uterine Contractions Frequency From (mins): 0 - Assessment - Baby A Baseline FHR: 135 Heart Rate - NICHD Category: Category I (Normal) Physician Notification - Physician Notified Physician Notified Date: 01/08/23 Physician Notified Time: 19:13 Physician: Genesis Jean New Order Received: Yes (all labs wnl, order d/c with insruction) Maternal Triage Index - Stat/Priority 1 Stat Priority 1: No - Urgent/Priority 2 Urgent Priority 2: Yes Provider Notified: Genesis Jean Provider Notified Time: 18:15 Criteria Met for Priority 2: 27 2/7 severe pain lower right quadrant unrelated to contractions Disposition - Disposition OB Disposition: Triage, Discharge to home, Written follow up instructions reviewed Discharge Date: 01/08/23 Discharge Time: 19:18 I agree with the RN Medical Screening Exam: Yes Case reviewed; plan agreed upon as documented in EMR&OBIX.: Yes Diagnosis: RELATED CONDITIONS, UNSPECIFIED, SECOND TRIMESTER
== END 2023-01-08 19:19 | disposition home or self-care (01) ==
LOC: FBPOP 17:15
PROVIDERS: ATTEND Obstetrics & Gynecology Obstetrics
DX: O26.892 Other specified pregnancy related conditions, second trimester (principal); M54.9 Dorsalgia, unspecified; R10.31 Right lower quadrant pain; Z3A.27 27 weeks gestation of pregnancy; Z79.82 Long term (current) use of aspirin; Z91.048 Other nonmedicinal substance allergy status
CPT/HCPCS: 36415; 80048; 81001; 85025; 99213